=== PATIENT | female | born 1990 | race African-American/Black ===

== ENCOUNTER 2021-07-14 04:09 | Inpatient (IN) | payer OTHER ==
[2021-07-14] VITALS (73 sets, daily range): BP systolic 95–140; BP diastolic 51–86
[~2021-07-14] VITALS: Ht 154.9 cm; Wt 84.1 kg
[2021-07-14] MEDS ORDERED: PRENTAB9 PO (04:54)
[2021-07-14] MEDS ORDERED: HOME MED LIST COMPLETE! XX SCH (04:55)
[2021-07-14] MEDS ORDERED: LACTATED RINGER'S 1000 ML IV STA (05:54)
[2021-07-14] MEDS ORDERED: OXYTOCIN DRIP 30 UNITS in IV 1 EA IV PRN (05:55)
[2021-07-14 05:57] LABS: HEMATOCRIT 40.9 % (36.0-47.0); HEMOGLOBIN 13.8 g/dl (12.0-15.5); MEAN CORPUSCULAR HEMOGLOBIN 31.4 pg (27.0-33.0); MEAN CORPUSCULAR HGB CONC 33.7 g/dl (32.0-36.5); PLATELET COUNT, AUTOMATED 143 10^3/uL (150-450); WHITE BLOOD COUNT 8.5 10^3/uL (4.0-10.0)
[2021-07-14] MEDS: LR 1,000 ML IV SCH ×3 (06:30→23:29)
--- NOTE | 2021-07-14 06:48 | HPEPDOC ---
Obstetrical History & Physical General Date of Admission Jul 14, 2021 at 05:13 History of Present Illness C/o contractions every 5 minutes since midnight. Denies bleeding, LOF, states reassuring FM. Chief Complaint: Contractions, term Information Provided By: Patient Age: 30 : 1 Term: 0 Pre-term: 0 Abortions: 0 Livin Care Care: Good Care Dating Final EDC: Jul 19, 2021 Final EDC for Daily Update: Jul 19, 2021 Final EDC by: LMP LMP: Oct 12, 2020 Estimated Date of Confinement: Jul 19, 2021 EGA at Admission: 39 (+2) Antepartum Course Diagnos(e)s anxiety, varicella non-immune Height (inches): 62 Pre- weight (lbs.): 147 Admission Weight (lbs.): 186 Change in Weight (lbs.): 39 Past Medical History Past Obstetrical History : Past Obstetrical History: [employer] History: No pertinent history Past Medical History Medical History anxiety, migraines Surgical History: Denies/None Family History Significant Family History: Cancer (father- lung cancer; maternal grandfather- prostate cancer) Social History Social history , dependent Marital Status: Family situation: Spouse/partner home Psychosocial History: Anxiety * Smoker: non-smoker Alcohol: Denies Drugs: denies Abuse Violence Screening Have you been hit/kicked/slapp: No Have you been sexually assault: No Imunizations Tdap status: current Influenza Status: needs Allergies Coded Allergies: No Known Allergies (Unverified , 07/14/21) Medications Scheduled No.137/Iron/Folic Acd ( Vitamin Tablet) 1 Each Tablet, 1 TAB PO DAILY Physical Examination Physical Examination GENERAL: Alert and oriented times three. BREAST: . ABDOMEN: Gravid and non-tender to touch. FETUS: Is vertex (VTX) by sterile vaginal examination (SVE), fetus is vertex (VTX) by [place]. HEART RATE: Regular rate and rhythm. LUNGS: Clear to auscultation (CTA). EXTREMITIES: No edema. No clonus. Deep tendon reflexes (DTRs) + . Vital Signs/I&O Vital Signs Date Time Temp Pulse Resp B/P (MAP) Pulse Ox O2 Delivery O2 Flow Rate FiO2 07/14/21 04:29 98.6 90 18 117/77 (90) Laboratory Data 24H LABS Laboratory Tests 2 07/14/21 05:16: Serology Scanned Report Hepatitis B Testing 07/14/21 05:24: Nucleated Red Blood Cells % (auto) 0.0 CBC/BMP Laboratory Tests 07/14/21 05:24 Pertinent Laboratoy Data Blood Type: O+ RBC Antibody Screen: Negative HIV: Negative Hepatitis B: Negative Rapid Plasma Reagin: Nonreactive Rubella: Immune Varicella: Nonreactive Chlamydia/Gonorrhea: Negative Group B Streptococcus: Negative Cystic Fibrosis: Negative Anatomy Ultrasound Placenta Location: Anterior Normal Anatomy: Yes Placenta Previa: No Vaginal Examination Dilation: 3 cm (per nursing staff) Effacement: 50% Station: -2 Assessment Heart Rate (FHR): 150 Variability: Minimal Accelerations: None Decelerations: Variable, Prolonged (2-3 min deceleration noted in triage) Tocometer Contractions: Yes Frequency: every 2-5 min. Duration: less than 60 seconds Strength: palpated as moderate, resting tone palp/soft Multi-drug resistant Organism: No history of MDRO Assessment/Plan Assessment Lauren is a 30-year-old (G)1 para (P)0-0-0-0 at 39+2 weeks by 10+6- week ultrasound. Presents to Labor and Delivery (L&D) for c/o contractions. Decreased variability and decel noted in triage. Plan Admit and orient. [employer] and consent. Diet: clear liquid. Group B Streptococcus (GBS) negative. Labs and intravenous (IV) per unit protocol. Counseled on Pitocin and induction of labor (IOL). Lactated Ringers (LR): Bolus 1000 mL, then at 125 mL/hr. Anticipate [normal spontaneous delivery ()]. C-S as appropriate. WILLY GOLD CNM Jul 14, 2021 06:48
[2021-07-14] MEDS ORDERED: OXYTOCIN DRIP 30 UNITS in IV 1 EA IV SCH (07:40)
--- NOTE | 2021-07-14 07:43 | IPNPDOC ---
Obstetrical Progress Note Date of Service Jul 14, 2021 Subjective Pt breathing through contractions Objective Vital Signs Date Time Temp Pulse Resp B/P (MAP) Pulse Ox O2 Delivery O2 Flow Rate FiO2 07/14/21 07:08 97.3 82 18 132/74 (93) Room Air Assessment Heart Rate (FHR): 135 Variability: Moderate Accelerations: Positive Decelerations: None Heart Rate Tracing: Category I Tocometer Contractions: Yes Frequency: regular, every 2-5 min. Duration: greater than 60 seconds Strength: palpated as moderate, resting tone palp/soft Sterile Vaginal Examination Dilation: 3 cm Effacement (%): 70% Station: -3 Cervical Consistency: Soft Postion/Presentation: Cephalic presentation Assessment and Plan Age: 30 : 1 Term: 0 Pre-term: 0 Abortions: 0 Livin EGA at Admission: 39 (+2) Status: Reassuring Group B Streptococcus: Negative Anticipate: Vaginal Delivery Additional Comments Pt counseled on augmentation of labor with Pitocin. LR @125 mL/hr, may eat a light breakfast prior to initiating Pitocin augmentation, continuous efm x2, encourage maternal movement, monitor for change in or maternal status, anticipate vaginal delivery. WILLY GOLD CNM Jul 14, 2021 07:43
--- NOTE | 2021-07-14 13:31 | IPNPDOC ---
Text Note Date of Service The patient was seen on 07/14/21. NOTE Lauren reported worsening pain with contractions and desired an exam. Chaperoned by RN Cervix: unchanged, /-3. FHR tracing - Mostly cat I, rare variable decel. Moderate variability, overall reassuring. Ctx becoming more regular. Pitocin at 10mU. No progress since starting pitocin. I discussed pain management options to include IV analgesia vs an epidural. At this time Lauren declines additional pain relief. Will continue to titrate pitocin to effect. All patient questions answered. Duane VS,Tommy, I+O VS, Tommy, I+O Laboratory Tests 07/14/21 05:24 Vital Signs Date Time Temp Pulse Resp B/P (MAP) Pulse Ox O2 Delivery O2 Flow Rate FiO2 07/14/21 09:48 90 18 124/73 (90) Room Air 07/14/21 07:08 97.3 AUGUST BRAGG DO Jul 14, 2021 13:31
[2021-07-14] MEDS ORDERED: FENTANYL 2MCG/ML ROPIVACAINE 0.2% IN 0.9% NACL 100ML IVBAG As Ordered ONE (14:28)
[2021-07-14] MEDS: FENTANYL/ROPIVACAINE/NACL BAG 100 ML EPIDURAL SCH ×2 (15:00→23:29)
[2021-07-14] MEDS ORDERED: EPIDURAL/PCA KEYS XX PRN (15:25)
[2021-07-14] MEDS ORDERED: EPIDURAL COMMENT XX SCH (15:25)
[2021-07-14] MEDS ORDERED: REFRIGERATOR IV KEYS XX PRN (15:25)
[2021-07-14] MEDS ORDERED: ONDANSETRON 4MG/2ML VIAL IV PRN (15:25)
[2021-07-14] MEDS ORDERED: NALOXONE INJ 0.4MG/1ML VIAL (J2310 PER 1MG) IV PRN (15:25)
[2021-07-14] MEDS ORDERED: diphenhydrAMINE 50MG/ML VIAL (J1200) IV PRN (15:25)
--- NOTE | 2021-07-14 15:31 | IPNPDOC ---
Text Note Date of Service The patient was seen on 07/14/21. NOTE Lauren received an epidural and shortly thereafter had a 5 minute FHR dec eleration down to the 60s. Pitocin was stopped, positional maneuvers were initiated, and she was given an IV fluid bolus. FHR recovered to BL of 140s and with moderate variability. Cervix: 6/80/-1. Will allow for period of rest. Monitor blood pressure and treat hypotension if necessary. Lauren appears to be transitioning into active phase. Will restart pitocin when able. All patient questions answered. Tommy Clarke, I+O VSTommy, I+O Laboratory Tests 07/14/21 05:24 Vital Signs Date Time Temp Pulse Resp B/P (MAP) Pulse Ox O2 Delivery O2 Flow Rate FiO2 07/14/21 13:58 96 125/86 (99) 07/14/21 12:53 97.4 16 07/14/21 09:48 Room Air AUGUST BRAGG DO Jul 14, 2021 15:31
[2021-07-14] MEDS: ePHEDrine SULFATE 25 MG/5 ML(5MG/ML) SYRINGE IV PRN ×2 (15:35→19:41)
--- NOTE | 2021-07-14 19:23 | IPNPDOC ---
Text Note Date of Service The patient was seen on 07/14/21. NOTE Went to room for assessment of progress. Lauren reports feeling well and denies any pain. Cervix: /0. AROM performed productive of a small amount of clear fluid. FHR has been Cat I with +early decels. Contractions regular. Continue to titrate pitocin to effect. Will reassess in 2 hours or sooner PRN. Duane VSTommy, I+O VS, Tommy, I+O Laboratory Tests 07/14/21 05:24 Vital Signs Date Time Temp Pulse Resp B/P (MAP) Pulse Ox O2 Delivery O2 Flow Rate FiO2 07/14/21 18:48 97.2 96 16 124/64 (84) 07/14/21 16:23 Room Air AUGUST BRAGG DO Jul 14, 2021 19:23
[2021-07-14] MEDS ORDERED: diphenhydrAMINE 50MG/ML VIAL (J1200) IV ONE (21:40)
--- NOTE | 2021-07-14 21:43 | IPNPDOC ---
Text Note Date of Service The patient was seen on 07/14/21. NOTE Lauren reported feeling more pressure. Cervix: unchanged, /. There is some cervical swelling. Pitocin halved down to 4mU due to some repetitive late decels earlier. This resolved with positional changes, ephedrine, and fluid bolus. FHR now Cat II with occasional variables, but moderate variability and overall reassuring. Will administer benadryl IV. Re assess in two hours or sooner PRN. All questions answered. Duane VSTommy I+O VSTommy I+O Laboratory Tests 07/14/21 05:24 Vital Signs Date Time Temp Pulse Resp B/P (MAP) Pulse Ox O2 Delivery O2 Flow Rate FiO2 07/14/21 20:04 112 16 108/66 (80) 07/14/21 18:48 97.2 07/14/21 16:23 Room Air AUGUST BRAGG DO Jul 14, 2021 21:43
[2021-07-15] VITALS (7 sets, daily range): BP systolic 109–125; BP diastolic 58–82
[2021-07-15] MEDS ORDERED: DIBUCAINE 1% OINTMENT 30GM TOP PRN (00:05)
[2021-07-15] MEDS ORDERED: ACETAMINOPHEN 500 MG TAB PO PRN (00:05)
[2021-07-15] MEDS ORDERED: IBUPROFEN 800 MG TAB PO PRN (00:05)
[2021-07-15] MEDS ORDERED: MEASLES,MUMPS,RUBELLA VACCINE INJ (MMR-II) (90707) SC SCH (00:05)
[2021-07-15] MEDS ORDERED: DOCUSATE SODIUM 100MG CAPSULE PO PRN (00:05)
[2021-07-15] MEDS ORDERED: RHOGAM 300 MCG (1500 IU) INJ (J2790) IM SCH (00:05)
[2021-07-15] MEDS ORDERED: PROMETHAZINE 25 MG TAB PO PRN (00:05)
[2021-07-15] MEDS ORDERED: IBUPROFEN 600MG TAB PO PRN (00:05)
[2021-07-15] MEDS ORDERED: OXYTOCIN DRIP 30 UNITS in IV 1 EA IV SCH (00:05)
--- NOTE | 2021-07-15 00:08 | DNPDOC ---
[facility] Delivery Note Delivery Note DATE OF DELIVERY: 15Jul2021 at ~0000 PREDELIVERY DIAGNOSIS: 39+3 weeks gestation and IOL for NRFHT POST DELIVERY DIAGNOSIS: Delivered PROCEDURE: Spontaneous vaginal delivery WHEEL PRESS CLERK: Dr. Zepeda ANESTHESIA: Epidural ESTIMATED BLOOD LOSS: 200 mL. FINDINGS: Pending weight, male infant, Score 9/9 DELIVERY SUMMARY: Lauren is a 30 yo G1 now P1 who was admitted for an IOL for NRFHT. She was started on pitocin, received an epidural, and underwent AROM. She steadily progressed into 2nd stage and started pushing. With excellent effort her infant delivered after about 10 minutes of pushing. Presentation was REANNA with restitution to ROT. The left anterior shoulder delivered with gentle traction followed easily by the remainder of the body. The infant was dried and stimulated on the field and a bulb suction was used. The baby cried vigorously and was placed on the maternal abdomen. The three vessel cord was then clamped and cut by the FOB after appropriate time delay and under my direction. 3rd stage was completed with gentle traction on the cord and it was productive of an intact placenta. The uterus was firmed with massage and pitocin was administered IV bolus. Inspection of the cervix, vagina, perineum, and labia revealed a small vaginal floor laceration. This laceration was repaired with 3- 0 vicyrl suture in the usual fashion. There was excellent cosmesis and hemostasis after the repair. The fundus was palpated again and was confirmed to be firm. Sponge, instrument, and needle counts were correct X3. Mother and stable when I left the room. AUGUST Schneider DO Jul 15, 2021 00:08
[2021-07-15] MEDS: PRENATAL VITAMINS CHEWABLE TABLET PO SCH (10:29)
[2021-07-15] MEDS: ACETAMINOPHEN TAB 650MG DOSE (2X325MG) PO PRN ×2 (10:29→20:45)
[2021-07-16] MEDS ORDERED: IBUP-1022 PO (03:54)
[2021-07-16] MEDS ORDERED: ACET1TAB55 PO (03:54)
[2021-07-16] MEDS ORDERED: COLA100C5 PO (03:54)
[2021-07-16 06:00] VITALS: BP 126/60
--- NOTE | 2021-07-16 06:40 | OBDS ---
[facility] Obstetrical Discharge Sum. Obstetrical Discharge Summary Care Companion/Provider: RODNEY TYLER DO Date: Jul 16, 2021 Time: 03:39 : 1 Term: 1 Pre-term: 0 Abortions: 0 Livin VDRL: Non-Reactive Rh: Positive Rubella: Immune Labor induction of labor for non-reassuring heart rate tracing Delivery normal spontaneous vaginal delivery Infant Sex: Male Weight: pounds (6), ounces (11) Anesthesia: Regional Anesthesia A/P, Post Course List any complications Admission diagnosis: non reassuring heart rate tracing Discharge diagnosis: normal spontaneous vaginal delivery Condition at Discharge: good Discharge Instructions: Home Activity: as tolerated Diet: regular Medications: at [place] Follow-up: 6 weeks [facility] Other: Day of discharge exam: a&o x3 nonlabored breathing abd soft nontender fundus firm negative calf tenderness bilaterally desires Mirena at 6 week visit RODNEY TYLER DO Jul 16, 2021 03:42
[2021-07-16] MEDS: PRENATAL VITAMINS CHEWABLE TABLET PO SCH (08:36)
== END 2021-07-16 17:15 | disposition home or self-care (01) | DRG 807 ==
LOC: M LDO 04:09 → M LDI 05:13 → M OBS 07-15 02:04
PROVIDERS: ADMIT Registered Nurse; ATTEND Obstetrics & Gynecology
PROC: 10907ZC Drainage of Amniotic Fluid, Therapeutic from Products of Conception, Via Natural or Artificial Opening (ICD-10-PCS; 2021-07-14)
PROC: 10E0XZZ Delivery of Products of Conception, External Approach (ICD-10-PCS; principal; 2021-07-15)
PROC: 0HQ9XZZ Repair Perineum Skin, External Approach (ICD-10-PCS; 2021-07-15)
DX: O76 Abnormality in fetal heart rate and rhythm complicating labor and delivery (principal); Z37.0 Single live birth; Z3A.39 39 weeks gestation of pregnancy; O70.0 First degree perineal laceration during delivery

== ENCOUNTER 2022-06-05 19:41 | Emergency (ER) | payer OTHER ==
[~2022-06-05] VITALS: Ht 157.5 cm; Wt 74.5 kg
[~2022-06-05 19:41] MED LIST: ACET1TAB55 PO; COLA100C5 PO; IBUP-1022 PO; PRENTAB9 PO
[2022-06-05 19:42] VITALS: BP 120/79
== END 2022-06-05 21:30 | disposition left against medical advice (07) ==
LOC: M ED 19:41
DX: Z53.21 Procedure and treatment not carried out due to patient leaving prior to being seen by health care provider (principal)